=== PATIENT | female | born 1970 | race Hispanic/Latino ===

== ENCOUNTER 2020-10-22 19:16 | Emergency (ER) | payer BC ==
[~2020-10-22] VITALS: Ht 149.9 cm; Wt 79.4 kg
[2020-10-22] MEDS ORDERED: CEFTRIAXONE SOD 1 GM/50 ML BAG IV ONE (19:30)
[2020-10-22] MEDS ORDERED: DEXAMETHASONE SOD PHOS 10 MG/1 ML VIAL IV ONE (19:30)
[2020-10-22] MEDS ORDERED: ACETAMINOPHEN 325 MG TAB PO ONE (19:30)
[2020-10-22] MEDS ORDERED: AZITHROMYCIN 500MG/NS 250 ML 250 ML IV ONE (19:30)
[2020-10-22] MEDS ORDERED: SODIUM CHLORIDE 0.9% 1000ML 1,000 ML IV ONE (20:00)
[2020-10-22] MEDS ORDERED: CEFTRIAXONE SOD 1 GM VIAL ONE (20:02)
[2020-10-22 20:12] LABS: BASOPHILS % 0.2 % (0.0-1.0); EOSINOPHILS % 0.1 % (0.0-6.0); HEMATOCRIT 43.2 % (34.2-44.1); HEMOGLOBIN 14.7 g/dL (12.0-16.0); LYMPHOCYTES # (AUTO) 0.8 (1.0-3.2); LYMPHOCYTES % 8.3 % (18.0-39.1); MEAN CORPUSCULAR HEMOGLOBIN 30.7 pg (28-32); MEAN CORPUSCULAR VOLUME 90.2 fL (81-99); MONOCYTES # (AUTO) 0.4 (0.2-0.8); NEUTROPHILS # (AUTO) 8.1 (2.1-6.9); NEUTROPHILS % 86.3 % (38.7-80.0); PLATELET COUNT 280 x10e3/uL (140-360); RED BLOOD COUNT 4.79 x10e6/uL (3.6-5.1); RED CELL DISTRIBUTION WIDTH 12.2 % (11.7-14.4)
[2020-10-22] MEDS ORDERED: CEFTRIAXONE SOD 1 GM in SODIUM CHLORIDE 0.9% 50ML 50 ML IV ONE (20:15)
[2020-10-22 20:29] LABS: ALANINE AMINOTRANSFERASE 41 IU/L (0-55); ALBUMIN 3.2 g/dL (3.5-5.0); ALBUMIN/GLOBULIN RATIO 0.7 (0.8-2.0); ALKALINE PHOSPHATASE 61 IU/L (40-150); BLOOD UREA NITROGEN 9 mg/dL (7-26); BUN/CREATININE RATIO 13 (6-25); CALCIUM 8.6 mg/dL (8.4-10.2); CARBON DIOXIDE 21 mmol/L (22-29); CHLORIDE 103 mmol/L (98-107); CREATINE KINASE 89 IU/L (29-168); EST GLOMERULAR FILTRATION RATE > 60 ML/MIN (60-); GLUCOSE 136 mg/dL (74-118); SODIUM 139 mmol/L (136-145)
[2020-10-22 23:02] VITALS: BP 102/65
== END 2020-10-22 23:04 | disposition other institution (70) ==
LOC: ER 19:31
DX: U07.1 COVID-19 (principal); J18.9 Pneumonia, unspecified organism; R05 Cough; R50.9 Fever, unspecified; R09.02 Hypoxemia; R06.02 Shortness of breath; Z99.81 Dependence on supplemental oxygen
CPT/HCPCS: 36415; 71045; 80053; 82550; 82553; 84484; 85025; 99284; J0456; J0696; J1100; J7030; U0002

== ENCOUNTER → 2020-11-24 | Outpatient (CLI) | payer BC | LOC: MAMMO 14:08 | PROVIDERS: ATTEND Internal Medicine | DX: Z12.31 Encounter for screening mammogram for malignant neoplasm of breast (principal); R91.8 Other nonspecific abnormal finding of lung field | CPT/HCPCS: 71046; 77067 ==